=== PATIENT | male | born 1965 | race African-American/Black ===

== ENCOUNTER 2023-05-03 20:15 | Emergency (ER) | payer OTHER, SELFPAY ==
[2023-05-03 20:21] VITALS: BP 171/78; PULSE 82; RESP 16; TEMP 36.6; O2SAT 98
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
[2023-05-03] MEDS: ACETAMINOPHEN 500 MG TABLET 1000 MG PO (21:46)
[2023-05-03] MEDS: CYCLOBENZAPRINE HCL 10 MG TABLET PO (21:46)
[2023-05-03] MEDS: KETOROLAC 30 MG/ML VIAL (*BKC) IM (21:46)
[2023-05-03] MEDS: LIDOCAINE 5% PATCH 1 PATCH TRANSDERM (21:46)
== END 2023-05-03 22:39 | disposition home or self-care (01) ==
LOC: ANHED 22:17
PROVIDERS: Emergency Provider Emergency Medicine
DX: S39.012A Strain of muscle, fascia and tendon of lower back, initial encounter (principal); I10 Essential (primary) hypertension; V64 Occupant of heavy transport vehicle injured in collision with heavy transport vehicle or bus
CPT/HCPCS: 96372; 99283; A9270; J1885